=== PATIENT | female | born 1945 | race Caucasian/White ===

== ENCOUNTER 2016-05-05 08:52 | Day surgery (SDC) | payer BC ==
--- NOTE | ~2016-05-05 | EGD ---
EGD REPORT [facility] [address] [id number] NAME: SAMREEN MONTGOMERY : [birth year] STATUS : REG [facility]#: [id number] AGE: 70 ADM/REG DATE : 05/05/16 MR#: [id number] REPORT SERV DATE: 05/05/16 DICTATED BY: OLLIE BOSTON DATE: 05/05/16 REPORT STATUS : Draft [facility]ANS[facility]IBED BY: [facility] DATE: 05/05/16 End[facility] Center Patient Name: Samreen Montgomery Date of : 1945 Attending MD: OLLIE BOSTON MD Procedure Date No Time: 05/05/2016 Procedure: Colonoscopy Indications: Screening in patient at increased risk: Family history of 1st-degree relative with colorectal cancer Referring MD: ZAHRAA WEEKS MD Medicines: as per anesthesia Complications: No immediate complications. Procedure: Pre-Anesthesia Assessment: - ASA Grade Assessment: III - A patient with severe systemic disease. After I obtained informed consent, the scope was passed under direct vision. Throughout the procedure, the patient's blood pressure, pulse, and oxygen saturations were monitored continuously. The [facility] [id number] was introduced through the anus and advanced to the cecum, identified by appendiceal orifice and ileocecal valve. The colonoscopy was performed without difficulty. The patient tolerated the procedure. The quality of the bowel preparation was adequate to identify polyps. Findings: The perianal and digital rectal examinations were normal. A sessile polyp was found in the cecum. The polyp was 4 mm in size. The polyp was removed with a cold biopsy forceps. Resection and retrieval were complete. Multiple small and large-mouthed diverticula were found in the sigmoid colon and in the descending colon. Internal hemorrhoids were found during endoscopy and were mild. Impression: - One 4 mm polyp in the cecum. Resected and retrieved. - Diverticulosis in the sigmoid colon and in the descending colon. - Internal hemorrhoids. Recommendation: - Await pathology results. - Repeat colonoscopy for surveillance based on pathology results. Procedure Code(s): --- Professional --- 17634, Colonoscopy, flexible, proximal to splenic EGD REPORT [facility] [address] [place]. [address] NAME: SAMREEN MONTGOMERY : [birth year] STATUS : REG [facility] PAT#: [id number] AGE: 70 ADM/REG DATE : 05/05/16 MR#: [id number] REPORT SERV DATE: 05/05/16 DICTATED BY: OLLIE BOSTON. DATE: 05/05/16 REPORT STATUS : Draft TRANSCRIBED BY: [employer] DATE: 05/05/16 flexure; with biopsy, single or multiple Diagnosis Code(s): --- Professional --- D12.0, Benign neoplasm of cecum K64.8, Other hemorrhoids K57.30, Diverticulosis of large intestine without perforation or abscess without bleeding Z12.11, Encounter for screening for malignant neoplasm of colon Z80.0, Family history of malignant neoplasm of digestive organs CPT copyright 2013 [employer]. All rights reserved. The codes documented in this report are preliminary and upon forest management professor review may be revised to meet current compliance requirements. OLLIE BOSTON MD 05/05/2016 11:10 AM This report has been signed electronically. Number of Addenda: 0 Note Initiated On: 05/05/2016 10:40 AM Scope Withdrawal Time 0 hours 8 minutes 1 second [address] [place] [address]
[~2016-05-05 08:52] MED LIST: ACET500CAP PO; ADVAIR INH; ADVAIR100 INH; ATEN50 PO; IMOD PO; KLONO1 PO; LOTREL1 CA2 PO; PROAIR HFA INH
== END 2016-05-05 23:59 | disposition home or self-care (01) ==
LOC: DMU 08:52
PROVIDERS: Internal Medicine Gastroenterology
PROC: 0DBH8ZX Excision of Cecum, Via Natural or Artificial Opening Endoscopic, Diagnostic (ICD-10-PCS; principal; 2016-05-05 10:30)
DX: Z12.11 Encounter for screening for malignant neoplasm of colon (principal); D12.0 Benign neoplasm of cecum; K64.8 Other hemorrhoids; K57.30 Diverticulosis of large intestine without perforation or abscess without bleeding; J45.909 Unspecified asthma, uncomplicated; K58.9 Irritable bowel syndrome, unspecified; G89.29 Other chronic pain; M54.9 Dorsalgia, unspecified; E78.00 Pure hypercholesterolemia, unspecified; M19.90 Unspecified osteoarthritis, unspecified site; E04.9 Nontoxic goiter, unspecified; F41.9 Anxiety disorder, unspecified; I10 Essential (primary) hypertension; Z80.0 Family history of malignant neoplasm of digestive organs; Z88.0 Allergy status to penicillin; Z88.1 Allergy status to other antibiotic agents; Z79.899 Other long term (current) drug therapy; Z90.49 Acquired absence of other specified parts of digestive tract; Z90.710 Acquired absence of both cervix and uterus; Z98.890 Other specified postprocedural states
CPT/HCPCS: 88305